=== PATIENT | female | born 1970 | race Caucasian/White ===

== ENCOUNTER 2016-10-14 12:31 | Emergency (ER) | payer MEDICARE ==
[2016-10-14] MEDS ORDERED: Dicyclomine HCl 20 mg/2 ml Ampule ONE (12:56)
[2016-10-14 13:21] LABS: #Basophils 0.1 thou/uL (0.0-0.2); #Eosinphils 0.1 thou/uL (0.0-0.7); #Lymphocytes 1.5 thou/uL (1.20-3.40); #Monocytes 0.4 thou/uL (0.11-0.59); #Neutrophils 2.5 thou/uL (1.40-6.50); %Basophils 1.3 % (0.0-1.0); %Eosinophils 2.6 % (0.0-10.0); %Monocytes 9.7 % (0.0-10.0); Mean Platelet Volume 6.5 fL (7.4-10.4); Red Blood Cell (RBC) Count 4.53 mill/uL (4.20-5.40); White Blood Cell (WBC) Count 4.5 thou/uL (4.8-10.8)
[2016-10-14 13:29] LABS: Blood, Urine Negative (Negative); Glucose, Urine (Dipstick) Negative (Negative); Ketone, Urine Negative (Negative); Nitrite Negative (Negative); Protein, Urine (Dipstick) 30 mg/dL (Neg-Trace)
[2016-10-14 13:37] LABS: ALT (SGPT) 12 U/L (0-55); AST (SGOT) 17 U/L (5-34); Alkaline Phosphatase 63 U/L (40-150); Anion Gap 13 mmol/L (10-20); BUN (Urea Nitrogen) 7 mg/dL (7.0-18.7); Bilirubin Negative (Negative); Bilirubin, Total 0.4 mg/dL (0.2-1.2); Calc. Creatinine Clearance 0 mL/min (70-130); Calcium 9.4 mg/dL (7.8-10.44); Carbon Dioxide 27 mmol/L (22-29); Chloride 107 mmol/L (98-107); Estimated GFR-MDRD 77; Globulin 2.8 g/dL (2.4-3.5); Lipase 26 U/L (8-78); Protein, Total 6.9 g/dL (6.0-8.3); RBC/HPF 0-3 HPF (0-3); WBC/HPF 0-3 HPF (0-3)
[2016-10-14 13:38] LABS: Bacteria/HPF 2+ HPF (None Seen)
[2016-10-14 13:40] LABS: Methadone Not Detected (NotDetected); Methamphetamine Not Detected (NotDetected)
[2016-10-14] MEDS ORDERED: Fentanyl 100 MCG/2 ML VIAL ONE (13:55)
--- NOTE | 2016-10-14 14:16 | ERRECORD ---
[facility] EMERGENCY RECORD HPI ABDOMINAL PAIN (13:12 [facility]AM) CHIEF COMPLAINTS: Patient presents for evaluation of abdominal pain. HISTORIAN: History provided by patient, Pt started with periumbilical abd pain 20 min ago after finishing pork chop, veggies and "a lot more than I usually eat." She has had similar pain off and on for "at least 8-9 years." She reports "at least 8 ct scans" and "more EGD's, ERCP's and colonoscopies than you can count." She has had "adhesions before" as well as GB, HYST and appy. She did have recurrent pancreatitis prior to removing her GB. She has been told that she has irritable bowel and has seen multiple gastroenterologists. LOCATION FEMALE: Symptoms are localized, most severe periumbilical, most severe in the radiates to the left flank. QUALITY: Pain is dull in nature, described as cramping, Described as similar to previous episodes. SEVERITY: Current severity of pain rated as 10/10. TIME COURSE: Sudden onset of symptoms, 20 min ago, Symptoms are intermittent, There has been no change in the patient's symptoms over time. ASSOCIATED WITH FEMALE: No associated recent antibiotic use, No associated bright red blood per rectum, No associated chills, No associated constipation, Associated with diarrhea, Number of times: 20 times 2 days ago but none since, No associated fever, Associated with flank pain, on the left, No associated groin pain, No associated hematemesis, No associated hematuria, No associated loss of appetite, No associated melena, No associated nausea, No associated night sweats, No associated trauma, No associated inability to tolerate oral intake, No associated urinary tract infection signs or symptoms, No associated vomiting. MODIFYING FACTORS FEMALE: Patient has had a hysterectomy. RELIEVED BY: Patient's condition not relieved by belching, Patient's condition not relieved by bowel movement, Patient's condition not relieved by changes in diet, Patient's condition not relieved by food, Patient's condition not relieved by flatulence, Patient's condition relieved by prescription medications, took her usual percocet this morning. She takes oxycontin er and percocet chronically., Patient's condition relieved by remaining still. EXACERBATED BY: Patient's condition exacerbated by food. RISK FACTORS FEMALE: No ectopic risk factors present, No abdominal aortic aneurysm risk factors, No coronary artery disease risk factors. ROS (13:22 [facility]) CONSTITUTIONAL: Negative constitutional review of systems, Historian denies chills, denies fatigue, denies fever. EYES: Negative eye review of systems. ENT: Negative ears, nose, throat review of systems. CARDIOVASCULAR: Negative cardiovascular review of systems, Historian denies chest pain, denies diaphoresis, denies exercise &a-1R&a+25V*p+0X*[id number]*c202B*c15G*c2P*p-0X&a-25V&a+1R Name: Patricia Davis : 1970 F45 MedRec: [id number] AcctNum: [id number] Prepared: Rupa Oct 14, 2016 19:55 by Interface Page 1 of 5 pMD [facility] EMERGENCY RECORD intolerance, denies palpitations. RESPIRATORY: Negative respiratory review of systems, Historian denies cough, denies shortness of breath, denies sputum, denies wheezing. GI: Historian reports abdominal pain, denies anorexia, denies appetite changes, reports diarrhea, denies nausea, denies vomiting. GENITOURINARY FEMALE: Historian denies dysuria, denies frequency, denies hesitancy, denies vaginal bleeding, denies vaginal discharge, denies vaginal itching. MUSCULOSKELETAL: Negative musculoskeletal review of systems, Historian denies arthralgias, denies injury, denies myalgias. SKIN: Negative skin review of systems, Historian denies rash, denies skin lesions. NEUROLOGIC: Negative neurologic review of systems, Historian denies confusion, denies headache. ENDOCRINE: Negative endocrine review of systems. HEMO/LYMPHATIC: Normal hematologic/lymphatic system review. ALLERGIC/IMMUNOLOGIC: Normal allergy/immunologic system review. PSYCHIATRIC: Negative psychiatric review of systems. PAST MEDICAL HISTORY (12:46 [facility]) MEDICAL HISTORY: Notes: CHRONIC BACK PAIN.,scoliosis, migraines. FEMALE SURGICAL HISTORY: LOWER BACK SURG X 7, Surgical history of appendectomy, Surgical history of cholecystectomy, Surgical history of hysterectomy, Surgical history of tonsillectomy. PSYCHIATRIC HISTORY: Psychiatric history includes, anxiety. SOCIAL HISTORY: Patient drinks socially, Patient denies drug use, Patient is a former tobacco user, Tobacco history notes: e- cig, Lives at home, with family, Patient drinks socially, every week, Patient denies drug use, Patient currently uses tobacco, [employer]. KNOWN ALLERGIES Ativan Stadol CURRENT MEDICATIONS Percocet: TABLET : Strength - 10 mg-325 mg : ORAL Patient Dose: 4 times a day. (12:47 [facility]) Flexeril: TABLET : Strength - 10 mg : ORAL Patient Dose: 3 times a day. (12:47 [facility]H) estradiol: TABLET : Strength - 0.5 mg : ORAL Patient Dose: UNK once a day. (12:47 [facility]) &a-1R&a+25V*p+0X*[id number]*c202B*c15G*c2P*p-0X&a-25V&a+1R Name: Patricia Davis : 1970 F45 MedRec: [id number] AcctNum: [id number] Prepared: Rupa Oct 14, 2016 19:55 by Interface Page 2 of 5 pMD [facility] EMERGENCY RECORD gabapentin: TABLET : Strength - 600 mg : ORAL Patient Dose: 3 times a day. (12:47 [facility]) oxyCODONE: CAPSULE : Strength - 5 mg : ORAL Patient Dose: Unknown. (12:48 [facility]) VITAL SIGNS VITAL SIGNS: BP: 125/96, Pulse: 86, Resp: 18, Temp: 98.1 (Oral), Pain: 10, O2 sat: 98, Time: 10/14/2016 12:40. (12:40 [facility]) BP: 112/87, Pulse: 89, Resp: 18, O2 sat: 100, Time: 10/14/2016 14:04. (14:04 [facility]) PHYSICAL EXAM (13:23 [facility]) CONSTITUTIONAL: Vital Signs Reviewed, Patient afebrile, Pulse normal, Blood pressure elevated, Respiratory rate normal, Normal pulse oximetry, Patient appears non toxic, Patient appears uncomfortable and in intermittent abd pain, Patient alert and oriented to person, place and time, Nursing notes reviewed. HEAD: Head exam included findings of head atraumatic, normocephalic. EYES: Eye exam included findings of eyelids normal to inspection, Pupils equally round and reactive to light, Extraocular muscles intact, Conjunctiva normal, Sclera normal, Eye exam included findings of anterior chamber clear. ENT: Ear exam normal, external ear normal, tympanic membranes normal, no foreign body, no drainage, no bleeding, hearing normal, Nose exam normal, no nasal deformity, no bleeding from nares, no bleeding from hypopharynx, no foreign body visualized, no septal hematoma, no septal necrosis, No turbinate mucosa discharge, Pharynx exam normal, not injected, no swelling, symmetrical, Uvula exam normal, midline, no edema, Tonsil exam normal, not enlarged, no exudates, Mouth exam normal, mucous membranes moist, no drooling, no lesions, no lacerations, no tongue elevation, teeth normal. NECK: Neck exam included findings of normal range of motion, Trachea midline, Thyroid normal, no meningeal signs, no cervical adenopathy, no tenderness, no contusions, no ecchymosis. RESPIRATORY CHEST: Respiratory exam included findings of no respiratory distress, Breath sounds clear, No wheezing, No rales, No rhonchi, Breath sounds not diminished, Chest exam included findings of chest movement symmetrical. CARDIOVASCULAR: Cardiovascular exam included findings of heart rate regular rate and rhythm, Heart sounds normal, normal S1, normal S2, no murmurs, no rub, no gallop. ABDOMEN FEMALE: Abdominal exam included findings of abdomen nontender, Bowel sounds normal, Liver normal, Spleen normal, no distension, no pulsatile masses, no peritoneal signs, no ventral hernia. BACK: Back exam included findings of, Range of motion, no tenderness, no costovertebral angle tenderness, &a-1R&a+25V*p+0X*f4479H*c202B*c15G*c2P*p-0X&a-25V&a+1R Name: Patricia Davis : 1970 F45 MedRec: [id number] AcctNum: [id number] Prepared: son Oct 14, 2016 19:55 by Interface Page 3 of 5 pMD [facility] EMERGENCY RECORD scoliosis and well healed scars from scoliosis. no cvat. UPPER EXTREMITY: Upper extremity exam normal, Upper extremity exam included findings of inspection normal, no abrasions, no contusions, no deformity, no lacerations, Range of motion normal, Motor strength normal, Sensation intact, Brachial pulse normal, Radial pulse normal. LOWER EXTREMITY: Lower extremity exam normal, Lower extremity exam included findings of inspection normal, no abrasions, no contusions, no deformity, no lacerations, Range of motion normal, Motor strength normal, Sensation intact, Pedal pulse normal, Kristian's negative, no edema, no calf tenderness. NEURO: Neuro exam findings include patient oriented to person, place and time, Speech normal, Gait normal, [place] coma scale 15, Memory normal, Cranial nerves intact, Deep tendon reflexes normal, no focal motor deficits, no focal sensory deficits. SKIN: Skin exam included findings of skin warm, dry, and normal in color, no rash. LYMPHATIC: Lymphatic exam normal, Lymphatic exam included findings of cervical nodes normal. PSYCHIATRIC: Psychiatric exam included findings of patient oriented to person place and time, Normal affect, Judgment normal, Insight normal, Remote memory normal, Recent memory normal, Concentration normal, No suicidal ideations, No homicidal ideations. MEDICATION ADMINISTRATION SUMMARY Drug Name: *fentaNYL (PF) injection, Dose Ordered: 50 mcg, Route: Intramuscular, Status: Given, Time: 13:57 10/14/2016, Drug Name: Bentyl intramuscular, Dose Ordered: 20 mg, Route: Intramuscular, Status: Given, Time: 12:59 10/14/2016, *Additional information available in notes, Detailed record available in Medication Service section. DOCTOR NOTES (13:55 [facility]) TEXT: Pt's labs and physical exam are reassuring and I see no suggestion of surgical dz or kidney stone or other significant intraabdominal process at this point. I think this is an exacerbation of her chronic IBS and she tells me that she has seen 8-9 gastroenterologists in the past. Further workup does not appear indicated at this time. see dci. PROBLEM LIST No recorded problems DIAGNOSIS (13:57 [facility]) FINAL: PRIMARY: IRRITABLE BOWEL SYND W/O DIARRHEA. PRESCRIPTION No recorded prescriptions &a-1R&a+25V*p+0X*b2190F*c202B*c15G*c2P*p-0X&a-25V&a+1R Name: Patricia Davis : 1970 F45 MedRec: [id number] AcctNum: [id number] Prepared: Rupa Oct 14, 2016 19:55 by Interface Page 4 of 5 pMD [facility] EMERGENCY RECORD DISPOSITION PATIENT: Disposition Type: Discharge, Disposition: *Discharge Home. (13:57 [facility]) Patient left the department. (14:06 [facility]) [place]: [facility]=MADHAV Mixon, January [facility]=MD Audrey, Song &a-1R&a+25V*p+0X*[id number]*c202B*c15G*c2P*p-0X&a-25V&a+1R Name: Patricia Davis : 1970 F45 MedRec: [id number] AcctNum: [id number] Prepared: Rupa Oct 14, 2016 19:55 by Interface Page 5 of 5 pMD MTDD
--- NOTE | 2016-10-14 14:20 | PICIS ---
[facility] EMERGENCY RECORD TRIAGE (ThuOct 14, 2016 12:43 ASAH) TRIAGE NOTES: pt c/o abdominal pain for 7 years with worsening over the past 2 weeks. denies any N/V/D. (ThuOct 14, 2016 12:43 ASAH) PATIENT: NAME: Patricia Davis, AGE: 45, GENDER: female, : Thu1970, TIME OF GREET: ThuOct 14, 2016 12:32, PREFERRED LANGUAGE: Vietnamese, ETHNICITY: Not or , ECODE BILLING MAP: [facility], SSN: [id number], Zip Code: [address], KG WEIGHT: 63.50, PHONE: , , , PERSON ID: [id number], PAYMENT: [employer], PCP: Deandre. (ThuOct 14, 2016 12:43 ASAH) COMPLAINT: Abdominal Pain. (ThuOct 14, 2016 12:43 ASAH) ADMISSION: URGENCY: 3 Urgent, ADMISSION SOURCE: Home, TRANSPORT: CAR, BED: ER -03. (ThuOct 14, 2016 12:43 ASAH) PAIN: Patient complains of pain described as, cramping, Location abdomin, Pain is intermittent, No aggravating factors, No relieving factors. (12:46 ASAH) IMMUNIZATIONS: Flu vaccine not up to date, Tetanus not up to date, Pneumococcal vaccine not up to date. (12:46 ASAH) SIRS SCORING: Heart Rate 55-109 (0), Temp range 96.8-101.1 (0), respiratory rate 12-24 (0), Mental status altered: yes (1), Infection or Suspected Infection: No. (12:46 ASAH) TRIAGE SCREENING: Patient denies suicidal ideation, Patient denies presence of domestic violence. (12:46 ASAH) LMP: LMP: Hysterectomy, Patient is not lactating. (12:46 ASAH) PROVIDERS: TRIAGE NURSE: Dolores Mixon RN. (ThuOct 14, 2016 12:43 ASAH) VITAL SIGNS: BP 125/96, Pulse 86, Resp 18, Temp 98.1, (Oral), Pain 10, O2 Sat 98, Time 10/14/2016 12:40. (12:40 ASAH) PREVIOUS VISIT ALLERGIES: Ativan, Stadol. (ThuOct 14, 2016 12:43 ASAH) Ativan, Stadol. (12:46 ASAH) KNOWN ALLERGIES Ativan Stadol CURRENT MEDICATIONS Percocet: TABLET : Strength - 10 mg-325 mg : ORAL Patient Dose: 4 times a day. (12:47 ASAH) Flexeril: TABLET : Strength - 10 mg : ORAL Patient Dose: 3 times a day. (12:47 ASAH) estradiol: TABLET : Strength - 0.5 mg : ORAL Patient Dose: UNK once a day. (12:47 ASAH) gabapentin: &a-1R&a+25V*p+0X*c0128I*c202B*c15G*c2P*p-0X&a-25V&a+1R Name: Patricia Davis : 1970 F45 MedRec: [id number] AcctNum: [id number] Prepared: ThuOct 14, 2016 19:55 by Interface Page 1 of 10 pMD [facility] EMERGENCY RECORD TABLET : Strength - 600 mg : ORAL Patient Dose: 3 times a day. (12:47 ASAH) oxyCODONE: CAPSULE : Strength - 5 mg : ORAL Patient Dose: Unknown. (12:48 ASAH) VITAL SIGNS VITAL SIGNS: BP: 125/96, Pulse: 86, Resp: 18, Temp: 98.1 (Oral), Pain: 10, O2 sat: 98, Time: 10/14/2016 12:40. (12:40 ASAH) BP: 112/87, Pulse: 89, Resp: 18, O2 sat: 100, Time: 10/14/2016 14:04. (14:04 ASAH) NURSING ASSESSMENT: ABDOMEN (13:00 ASAH) CONSTITUTIONAL: Complex assessment performed, Patient arrives, via hospital wheelchair, Gait steady, History obtained from patient, Patient cooperative, Patient alert, Oriented to person, place and time, Skin warm, Patient complains of abdominal pain. PAIN: cramping pain, to the left lower quadrant, intermittent, on a scale 0-10 patient rates pain as 8, Pain exacerbated by nothing. ABDOMEN: Abdomen assessment findings include abdomen symmetrical, Abdomen soft. SAFETY: Side rails up, Cart/Stretcher in lowest position, Family at bedside, Call light within reach, Hospital ID band on. NURSING PROCEDURE: DISCHARGE NOTE (14:04 [facility]) DISCHARGE: Patient discharged to home, ambulating without assistance, family driving, accompanied by other family member, Summary of Care printed/ provided, Discharge instructions given to patient, Simple or moderate discharge teaching performed, by madhav garcía. SAFETY: Side rails up, Cart/Stretcher in lowest position, Family at bedside, Call light within reach, Hospital ID band on. VITAL SIGNS: BP: 112, / 87, Pulse: 89, Resp: 18, O2 sat: 100, Time: 1402. NURSING PROCEDURE: URINE COLLECTION (12:58 [facility]) URINE COLLECTION FEMALE: Urine collected by mid-stream clean catch, Output amount (mL) 30, urine yellow in color, and clear, Specimen labeled in the presence of the patient and sent to lab. ORDER DETAILS Order Name: CBC with Differential, Status: Active, Time: 12:54 10/14/2016, User: MAURY, - Ordered for: MD Ventura Darren, - Entered by: MD Ventura Darren - Tue Oct 14, 2016 12:54, - Quantity: 1, Order Name: Comprehensive Metabolic Panel, Status: Active, Time: 12:54 10/14/2016, User: MAURY, &a-1R&a+25V*p+0X*g7133X*c202B*c15G*c2P*p-0X&a-25V&a+1R Name: Patricia Davis : 1970 F45 MedRec: [id number] AcctNum: [id number] Prepared: Rupa Oct 14, 2016 19:55 by Interface Page 2 of 10 pMD [facility] EMERGENCY RECORD - Ordered for: MD Ventura Darren, - Entered by: MD Ventura Darren - Tue Oct 14, 2016 12:54, - Quantity: 1, Order Name: Drug Screen, Urine, Status: Active, Time: 12:54 10/14/2016, User: MAURY, - Ordered for: MD Ventura Darren, - Entered by: MD Ventura Darren - Tue Oct 14, 2016 12:54, - Quantity: 1, Order Name: Lipase, Status: Active, Time: 12:54 10/14/2016, User: MAURY, - Ordered for: MD Ventura Darren, - Entered by: MD Ventura Darren - son Oct 14, 2016 12:54, - Quantity: 1, Order Name: Urinalysis with Microscopic, Status: Active, Time: 12:54 10/14/2016, User: MAURY, - Ordered for: MD Ventura Darren, - Entered by: MD Ventura Darren - son Oct 14, 2016 12:54, - Quantity: 1. MEDICATION ADMINISTRATION SUMMARY Drug Name: *fentaNYL (PF) injection, Dose Ordered: 50 mcg, Route: Intramuscular, Status: Given, Time: 13:57 10/14/2016, Drug Name: Bentyl intramuscular, Dose Ordered: 20 mg, Route: Intramuscular, Status: Given, Time: 12:59 10/14/2016, *Additional information available in notes, Detailed record available in Medication Service section. MEDICATION SERVICE Bentyl intramuscular: Order: Bentyl intramuscular (dicyclomine HCl) - Dose: 20 mg : Intramuscular Schedule: Now Ordered by: Song Ventura MD Entered by: Song Ventura MD son Oct 14, 2016 12:53 , Acknowledged by: Dolores Mixon RN son Oct 14, 2016 12:55 Documented as given by: Dolores Mixon RN ThuOct 14, 2016 12:59 Patient, Medication, Dose, Route and Time verified prior to administration. IM medication, Amount given: 20mg, Amount wasted: 0, Medication administered to left buttock, Correct patient, time, route, dose and medication confirmed prior to administration, Patient advised of actions and side-effects prior to administration, Allergies confirmed and medications reviewed prior to administration, Patient in position of comfort, Side rails up, Cart in lowest position. : Follow Up : No signs or symptoms of allergic reaction noted, Site inspection shows, No swelling at administration site, No drainage at administration site, No bleeding at site, No bruising noted at site, Advised not to ambulate without assistance, Patient in position of comfort, Side rails up, Cart in lowest position, Family at bedside. (14:02 [facility]) &a-1R&a+25V*p+0X*u8389R*c202B*c15G*c2P*p-0X&a-25V&a+1R Name: Patricia Davis : 1970 F45 MedRec: [id number] AcctNum: [id number] Prepared: ThuOct 14, 2016 19:55 by Interface Page 3 of 10 pMD [facility] EMERGENCY RECORD fentaNYL (PF) injection: Order: fentaNYL (PF) injection (fentanyl citrate/preservative free) - Dose: 50 mcg : Intramuscular Schedule: Now Notes: when family/transportation available. Ordered by: Song Ventura MD Entered by: Song Ventura MD ThuOct 14, 2016 13:52 , Acknowledged by: Dolores Mixon RN ThuOct 14, 2016 13:54 Documented as given by: Dolores Mixon RN ThuOct 14, 2016 13:57 Patient, Medication, Dose, Route and Time verified prior to administration. IM medication, Amount given: 50mcg, Amount wasted: 50 mcg, Medication administered to right buttock, Correct patient, time, route, dose and medication confirmed prior to administration, Patient advised of actions and side-effects prior to administration, Allergies confirmed and medications reviewed prior to administration, Patient in position of comfort, Side rails up, Cart in lowest position, Family at bedside. : Follow Up : No signs or symptoms of allergic reaction noted, Site inspection shows, No swelling at administration site, No drainage at administration site, No bleeding at site, No bruising noted at site, Advised not to ambulate without assistance, Patient in position of comfort, Side rails up, Cart in lowest position, Family at bedside. (14:03 [facility]) HPI ABDOMINAL PAIN (13:12 [facility]) CHIEF COMPLAINTS: Patient presents for evaluation of abdominal pain. HISTORIAN: History provided by patient, Pt started with periumbilical abd pain 20 min ago after finishing pork chop, veggies and "a lot more than I usually eat." She has had similar pain off and on for "at least 8-9 years." She reports "at least 8 ct scans" and "more EGD's, ERCP's and colonoscopies than you can count." She has had "adhesions before" as well as GB, HYST and appy. She did have recurrent pancreatitis prior to removing her GB. She has been told that she has irritable bowel and has seen multiple gastroenterologists. LOCATION FEMALE: Symptoms are localized, most severe periumbilical, most severe in the radiates to the left flank. QUALITY: Pain is dull in nature, described as cramping, Described as similar to previous episodes. SEVERITY: Current severity of pain rated as 10/10. TIME COURSE: Sudden onset of symptoms, 20 min ago, Symptoms are intermittent, There has been no change in the patient's symptoms over time. ASSOCIATED WITH FEMALE: No associated recent antibiotic use, No associated bright red blood per rectum, No associated chills, No associated constipation, Associated with diarrhea, Number of times: 20 times 2 days ago but none since, No associated fever, Associated with flank pain, on the left, No associated groin pain, No &a-1R&a+25V*p+0X*b5433U*c202B*c15G*c2P*p-0X&a-25V&a+1R Name: Patricia Davis : 1970 F45 MedRec: [id number] AcctNum: [id number] Prepared: Rupa Oct 14, 2016 19:55 by Interface Page 4 of 10 pMD [facility] EMERGENCY RECORD associated hematemesis, No associated hematuria, No associated loss of appetite, No associated melena, No associated nausea, No associated night sweats, No associated trauma, No associated inability to tolerate oral intake, No associated urinary tract infection signs or symptoms, No associated vomiting. MODIFYING FACTORS FEMALE: Patient has had a hysterectomy. RELIEVED BY: Patient's condition not relieved by belching, Patient's condition not relieved by bowel movement, Patient's condition not relieved by changes in diet, Patient's condition not relieved by food, Patient's condition not relieved by flatulence, Patient's condition relieved by prescription medications, took her usual percocet this morning. She takes oxycontin er and percocet chronically., Patient's condition relieved by remaining still. EXACERBATED BY: Patient's condition exacerbated by food. RISK FACTORS FEMALE: No ectopic risk factors present, No abdominal aortic aneurysm risk factors, No coronary artery disease risk factors. ROS (13:22 [facility]) CONSTITUTIONAL: Negative constitutional review of systems, Historian denies chills, denies fatigue, denies fever. EYES: Negative eye review of systems. ENT: Negative ears, nose, throat review of systems. CARDIOVASCULAR: Negative cardiovascular review of systems, Historian denies chest pain, denies diaphoresis, denies exercise intolerance, denies palpitations. RESPIRATORY: Negative respiratory review of systems, Historian denies cough, denies shortness of breath, denies sputum, denies wheezing. GI: Historian reports abdominal pain, denies anorexia, denies appetite changes, reports diarrhea, denies nausea, denies vomiting. GENITOURINARY FEMALE: Historian denies dysuria, denies frequency, denies hesitancy, denies vaginal bleeding, denies vaginal discharge, denies vaginal itching. MUSCULOSKELETAL: Negative musculoskeletal review of systems, Historian denies arthralgias, denies injury, denies myalgias. SKIN: Negative skin review of systems, Historian denies rash, denies skin lesions. NEUROLOGIC: Negative neurologic review of systems, Historian denies confusion, denies headache. ENDOCRINE: Negative endocrine review of systems. HEMO/LYMPHATIC: Normal hematologic/lymphatic system review. ALLERGIC/IMMUNOLOGIC: Normal allergy/immunologic system review. PSYCHIATRIC: Negative psychiatric review of systems. PAST MEDICAL HISTORY (12:46 [facility]) MEDICAL HISTORY: Notes: CHRONIC BACK PAIN.,scoliosis, migraines. FEMALE SURGICAL HISTORY: LOWER BACK SURG X 7, Surgical &a-1R&a+25V*p+0X*k7721X*c202B*c15G*c2P*p-0X&a-25V&a+1R Name: Patricia Davis : 1970 F45 MedRec: [id number] AcctNum: [id number] Prepared: Rupa Oct 14, 2016 19:55 by Interface Page 5 of 10 pMD [facility] EMERGENCY RECORD history of appendectomy, Surgical history of cholecystectomy, Surgical history of hysterectomy, Surgical history of tonsillectomy. PSYCHIATRIC HISTORY: Psychiatric history includes, anxiety. SOCIAL HISTORY: Patient drinks socially, Patient denies drug use, Patient is a former tobacco user, Tobacco history notes: e- cig, Lives at home, with family, Patient drinks socially, every week, Patient denies drug use, Patient currently uses tobacco, ECIG. PHYSICAL EXAM (13:23 [facility]) CONSTITUTIONAL: Vital Signs Reviewed, Patient afebrile, Pulse normal, Blood pressure elevated, Respiratory rate normal, Normal pulse oximetry, Patient appears non toxic, Patient appears uncomfortable and in intermittent abd pain, Patient alert and oriented to person, place and time, Nursing notes reviewed. HEAD: Head exam included findings of head atraumatic, normocephalic. EYES: Eye exam included findings of eyelids normal to inspection, Pupils equally round and reactive to light, Extraocular muscles intact, Conjunctiva normal, Sclera normal, Eye exam included findings of anterior chamber clear. ENT: Ear exam normal, external ear normal, tympanic membranes normal, no foreign body, no drainage, no bleeding, hearing normal, Nose exam normal, no nasal deformity, no bleeding from nares, no bleeding from hypopharynx, no foreign body visualized, no septal hematoma, no septal necrosis, No turbinate mucosa discharge, Pharynx exam normal, not injected, no swelling, symmetrical, Uvula exam normal, midline, no edema, Tonsil exam normal, not enlarged, no exudates, Mouth exam normal, mucous membranes moist, no drooling, no lesions, no lacerations, no tongue elevation, teeth normal. NECK: Neck exam included findings of normal range of motion, Trachea midline, Thyroid normal, no meningeal signs, no cervical adenopathy, no tenderness, no contusions, no ecchymosis. RESPIRATORY CHEST: Respiratory exam included findings of no respiratory distress, Breath sounds clear, No wheezing, No rales, No rhonchi, Breath sounds not diminished, Chest exam included findings of chest movement symmetrical. CARDIOVASCULAR: Cardiovascular exam included findings of heart rate regular rate and rhythm, Heart sounds normal, normal S1, normal S2, no murmurs, no rub, no gallop. ABDOMEN FEMALE: Abdominal exam included findings of abdomen nontender, Bowel sounds normal, Liver normal, Spleen normal, no distension, no pulsatile masses, no peritoneal signs, no ventral hernia. BACK: Back exam included findings of, Range of motion, no tenderness, no costovertebral angle tenderness, scoliosis and well healed scars from scoliosis. no cvat. UPPER EXTREMITY: Upper extremity exam normal, Upper extremity &a-1R&a+25V*p+0X*t5072C*c202B*c15G*c2P*p-0X&a-25V&a+1R Name: Patricia Davis : 1970 F45 MedRec: [id number] AcctNum: [id number] Prepared: ThuOct 14, 2016 19:55 by Interface Page 6 of 10 pMD [facility] EMERGENCY RECORD exam included findings of inspection normal, no abrasions, no contusions, no deformity, no lacerations, Range of motion normal, Motor strength normal, Sensation intact, Brachial pulse normal, Radial pulse normal. LOWER EXTREMITY: Lower extremity exam normal, Lower extremity exam included findings of inspection normal, no abrasions, no contusions, no deformity, no lacerations, Range of motion normal, Motor strength normal, Sensation intact, Pedal pulse normal, Kristian's negative, no edema, no calf tenderness. NEURO: Neuro exam findings include patient oriented to person, place and time, Speech normal, Gait normal, Elsa coma scale 15, Memory normal, Cranial nerves intact, Deep tendon reflexes normal, no focal motor deficits, no focal sensory deficits. SKIN: Skin exam included findings of skin warm, dry, and normal in color, no rash. LYMPHATIC: Lymphatic exam normal, Lymphatic exam included findings of cervical nodes normal. PSYCHIATRIC: Psychiatric exam included findings of patient oriented to person place and time, Normal affect, Judgment normal, Insight normal, Remote memory normal, Recent memory normal, Concentration normal, No suicidal ideations, No homicidal ideations. EVENTS TRANSFER: Triage to Emergency Emergency Room -03. (ThuOct 14, 2016 12:43 ASA) Removed from Emergency Emergency Room -03. (14:06 [facility]) O2SAT INTERPRETATION (13:12 [facility]) O2SAT: Single pulse oximetry, Oxygen saturation 98%, on room air, Oxygen saturation interpretation: Normal, No intervention required. DOCTOR NOTES (13:55 [facility]) TEXT: Pt's labs and physical exam are reassuring and I see no suggestion of surgical dz or kidney stone or other significant intraabdominal process at this point. I think this is an exacerbation of her chronic IBS and she tells me that she has seen 8-9 gastroenterologists in the past. Further workup does not appear indicated at this time. see dci. PROBLEM LIST No recorded problems DIAGNOSIS (13:57 [facility]) FINAL: PRIMARY: IRRITABLE BOWEL SYND W/O DIARRHEA. DISPOSITION PATIENT: Disposition Type: Discharge, Disposition: *Discharge Home. (13:57 [facility]AM) Patient left the department. (14:06 [facility]) &a-1R&a+25V*p+0X*b3252I*c202B*c15G*c2P*p-0X&a-25V&a+1R Name: Patricia Davis : 1970 F45 MedRec: [id number] AcctNum: [id number] Prepared: ThuOct 14, 2016 19:55 by Interface Page 7 of 10 pMD [facility] EMERGENCY RECORD INSTRUCTION (13:58 [facility]) DISCHARGE: IRRITABLE BOWEL SYNDROME. SPECIAL: use Metamucil 1 packet twice a day Return for fever, increased abdominal pain or any other concerns. Continue to follow up with your pcp, director of orthopedics and pain mgmt providers as planned. PRESCRIPTION No recorded prescriptions IMAGING (14:04 [facility]) *DISCHARGE INSTRUCTIONS RECEIPT: Image captured from scanner. *SUPPLY CHARGE SHEET: Image captured from scanner. ADMIN DIGITAL SIGNATURE: MADHAV Mixon, January. (14:06 [facility]) MD Ventura Darren. (19:49 [facility]) RESULTS (13:48 [facility]) LABORATORY: Drug Screen, Urine Collection DT: ThuOct 14, 2016 13:07, THC/Cannabinoid Screen Not Detected , Range (NotDetected), Phencyclidine (PCP) Not Detected , Range (NotDetected), Cocaine Metabolite Screen Not Detected , Range (NotDetected), Methamphetamine Not Detected , Range (NotDetected), *Opiate Screen Detected - H , Range (NotDetected), Amphetamine Not Detected , Range (NotDetected), Benzodiazepine Screen Not Detected , Range (NotDetected), Tricyclic Screen Not Detected , Range (NotDetected), Methadone Not Detected , Range (NotDetected), Barbiturates Screen Not Detected , Range (NotDetected), *Oxycodone Screen Detected - H , Range (NotDetected), Propoxyphene Screen Not Detected , Range (NotDetected), Drug Screen Cutoff , Range (), The MedTox Profile-V Panel for Qualitative Drugs of Abuse assays are for, presumptive screening testing only. The drug class and detection limits, are as follows: Drug Class Detection Limit Amphetamine , 500 ng/mL* Barbiturates 200 ng/mL , Benzodiazepines 150 ng/mL* Cocaine 150 ng/mL*, Methamphetamine 500 ng/mL* Methadone 200, ng/mL* Opiates 100 ng/mL* Oxycodone , 100 ng/mL PCP 25 ng/mL Propoxyphene , 300 ng/mL Tricyclic Antidepressants 300 ng/mL &a-1R&a+25V*p+0X*i1549N*c202B*c15G*c2P*p-0X&a-25V&a+1R Name: Patricia Davis : 1970 F45 MedRec: [id number] AcctNum: [id number] Prepared: ThuOct 14, 2016 19:55 by Interface Page [address] [facility] EMERGENCY RECORD Cannabinoids (THC) , 50 ng/mL Tests which yield a presumptive positive result must be , tested using a more specific alternate chemical method in order to obtain, a confirmed analytical result. Additional confirmation and identification, may be ordered on a routine basis, if desired. Presumptive positive urines, are held for two weeks. . Urinalysis with Microscopic Collection DT: ThuOct 14, 2016 13:07, Color Yellow , Range (Yellow), Clarity Cloudy , Range (Clear), Specific [place], Urine 1.025 , Range (1.005-1.030), pH, Urine 6.0 , Range (5.0-9.0), Leukocyte Negative , Range (Negative), Nitrite Negative , Range (Negative), *Protein, Urine (Dipstick) 30 - H mg/dL, Range (Neg-Trace), Glucose, Urine (Dipstick) Negative mg/dL, Range (Negative), Ketone, Urine Negative mg/dL, Range (Negative), Urobilinogen 1.0 mg/dL, Range (0.2-1.0), Bilirubin Negative , Range (Negative), , Blood, Urine Negative , Range (Negative), RBC/HPF 0-3 HPF, Range (0-3), WBC/HPF 0-3 HPF, Range (0-3), *Squamous Epithelial 7-10 - H HPF, Range (0-3), *Bacteria/HPF 2+ - H HPF, Range (None Seen). Lipase Collection DT: ThuOct 14, 2016 13:07, Lipase 26 U/L, Range (8-78). Comprehensive Metabolic Panel Collection DT: ThuOct 14, 2016 13:07, Sodium 143 mmol/L, Range (136-145), Potassium 4.1 mmol/L, Range (3.5-5.1), Chloride 107 mmol/L, Range (98-107), Carbon Dioxide 27 mmol/L, Range (22-29), Anion Gap 13 mmol/L, Range (10-20), BUN (Urea Nitrogen) 7 mg/dL, Range (7.0-18.7), Creatinine 0.80 mg/dL, Range (0.6-1.1), Estimated GFR-MDRD 77 , Reference Range for Estimated GFR: Greater than 90, mL/min/1.73 m2 NOTE: The MDRD equation has not been validated for use, with the elderly (over 70 years of age), women, patients with, serious comorbid condition or persons with extremes of body size, muscle, mass, or nutritional status. , Glucose 93 mg/dL, Range (70-105), Calcium 9.4 mg/dL, Range (7.8-10.44), Bilirubin, Total 0.4 mg/dL, Range (0.2-1.2), Protein, Total 6.9 g/dL, Range (6.0-8.3), NOTE: Plasma values are generally 0.3 to 0.5 g/dL higher than serum values, due to the presence of fibrinogen. , &a-1R&a+25V*p+0X*p2057L*c202B*c15G*c2P*p-0X&a-25V&a+1R Name: Negrorayna Patricia Samina : 1970 F45 MedRec: [id number] AcctNum: [id number] Prepared: ThuOct 14, 2016 19:55 by Interface Page 9 of 10 pMD [facility] EMERGENCY RECORD Albumin 4.1 g/dL, Range (3.5-5.0), Globulin 2.8 g/dL, Range (2.4-3.5), Alb/Glob Ratio 1.5 g/dL, Range (1.2-2.2), Alkaline Phosphatase 63 U/L, Range (40-150), AST (SGOT) 17 U/L, Range (5-34), ALT (SGPT) 12 U/L, Range (0-55). CBC with Differential Collection DT: ThuOct 14, 2016 13:07, *White Blood Cell (WBC) Count 4.5 - L thou/uL, Range (4.8-10.8), Red Blood Cell (RBC) Count 4.53 mill/uL, Range (4.20-5.40), Hemoglobin 13.4 g/dL, Range (12.0-16.0), Hematocrit 42.0 %, Range (36.0-47.0), Mean Corpuscular Volume 92.7 fl, Range (81.0-99.0), Mean Corpuscular Hemoglobin 29.6 pg, Range (27.0-31.0), *Mean Corpuscular HGB CONC 31.9 - L g/dL, Range (32.0-36.0), RBC Distribution Width 11.7 %, Range (11.5-14.5), Platelet Count 299 thou/uL, Range (130-400), *Mean Platelet Volume 6.5 - L fL, Range (7.4-10.4), %Neutrophils 54.4 %, Range (42.0-75.0), %Lymphocytes 32.1 %, Range (21.0-51.0), %Monocytes 9.7 %, Range (0.0-10.0), %Eosinophils 2.6 %, Range (0.0-10.0), *%Basophils 1.3 - H %, Range (0.0-1.0), #Neutrophils 2.5 thou/uL, Range (1.40-6.50), #Lymphocytes 1.5 thou/uL, Range (1.20-3.40), #Monocytes 0.4 thou/uL, Range (0.11-0.59), #Eosinphils 0.1 thou/uL, Range (0.0-0.7), #Basophils 0.1 thou/uL, Range (0.0-0.2). Carpio: DEEPA=MADHAV Mixon, January DHAM=MD Audrey, Song LGIB=MADHAV Alva, Marcella &a-1R&a+25V*p+0X*m3893J*c202B*c15G*c2P*p-0X&a-25V&a+1R Name: Jenny Davisscshannon Haas : 1970 F45 MedRec: [id number] AcctNum: [id number] Prepared: Rupa Oct 14, 2016 19:55 by Interface Page 10 of 10 pMD MTDD
== END 2016-10-14 14:02 | disposition home or self-care (01) ==
LOC: BURERS 12:31
DX: K58.9 Irritable bowel syndrome, unspecified (principal); G43.909 Migraine, unspecified, not intractable, without status migrainosus; F17.210 Nicotine dependence, cigarettes, uncomplicated
CPT/HCPCS: 36415; 80053; 81001; 83690; 85025; 96372; G0478; J3010

== ENCOUNTER 2019-12-11 17:06 | Emergency (ER) | payer MEDICARE ==
[2019-12-11] MEDS ORDERED: Ketorolac Tromethamine 30 MG/ML VIAL ONE (17:27)
[2019-12-11] MEDS ORDERED: methylPREDNISolone Sod Succ/PF 125 MG/2 ML VIAL ONE (17:27)
[2019-12-11] MEDS ORDERED: Prochlorperazine 10 MG/2 ML VIAL ONE (17:27)
[2019-12-11] MEDS ORDERED: diphenhydrAMINE 50 MG/ML VIAL ONE (17:27)
== END 2019-12-11 18:27 | disposition home or self-care (01) ==
LOC: BURERS 17:06
DX: G43.909 Migraine, unspecified, not intractable, without status migrainosus (principal); F41.9 Anxiety disorder, unspecified; Z87.891 Personal history of nicotine dependence; Z79.899 Other long term (current) drug therapy
CPT/HCPCS: 96361; 96374; 96375; J0780; J1200; J1885; J2930

== ENCOUNTER 2020-09-01 08:15 | Emergency (ER) | payer MEDICARE ==
[2020-09-01] MEDS ORDERED: Magnesium 2 GM/50 ML BAG (IN WATER) ONE (08:45)
[2020-09-01] MEDS ORDERED: diphenhydrAMINE 50 MG/ML VIAL ONE (09:03)
[2020-09-01] MEDS ORDERED: Metoclopramide HCl 10 MG/2 ML VIAL ONE (09:03)
[2020-09-01] MEDS ORDERED: Ketorolac Tromethamine 30 MG/ML VIAL ONE (09:03)
== END 2020-09-01 10:26 | disposition home or self-care (01) ==
LOC: BURERS 08:15
DX: G43.909 Migraine, unspecified, not intractable, without status migrainosus (principal); K21.9 Gastro-esophageal reflux disease without esophagitis; F41.9 Anxiety disorder, unspecified; F17.290 Nicotine dependence, other tobacco product, uncomplicated; Z79.899 Other long term (current) drug therapy
CPT/HCPCS: 96365; 96375; J1200; J1885; J2765; J3475

== ENCOUNTER 2020-10-09 03:43 | Emergency (ER) | payer MEDICARE ==
[2020-10-09] MEDS ORDERED: diphenhydrAMINE 50 MG/ML VIAL ONE (03:56)
[2020-10-09] MEDS ORDERED: Ketorolac Tromethamine 30 MG/ML VIAL ONE (03:56)
[2020-10-09] MEDS ORDERED: Metoclopramide HCl 10 MG/2 ML VIAL ONE (03:56)
== END 2020-10-09 05:21 | disposition home or self-care (01) ==
LOC: BURERS 03:43
DX: R51.9 Headache, unspecified (principal); K21.9 Gastro-esophageal reflux disease without esophagitis; F17.290 Nicotine dependence, other tobacco product, uncomplicated; Z79.899 Other long term (current) drug therapy
CPT/HCPCS: 96365; 96375; J1200; J1885; J2765

== ENCOUNTER 2020-11-23 18:32 | Emergency (ER) | payer MEDICARE ==
[2020-11-23] MEDS ORDERED: Dexamethasone 10 MG/ML VIAL ONE (19:30)
[2020-11-23] MEDS ORDERED: diphenhydrAMINE 50 MG/ML VIAL ONE (19:30)
[2020-11-23] MEDS ORDERED: Ketorolac Tromethamine 30 MG/ML VIAL ONE (19:30)
[2020-11-23] MEDS ORDERED: Metoclopramide HCl 10 MG/2 ML VIAL ONE (19:30)
== END 2020-11-23 21:04 | disposition home or self-care (01) ==
LOC: BURERS 18:32
DX: G43.909 Migraine, unspecified, not intractable, without status migrainosus (principal); K21.9 Gastro-esophageal reflux disease without esophagitis; F17.290 Nicotine dependence, other tobacco product, uncomplicated; Z79.899 Other long term (current) drug therapy
CPT/HCPCS: 96374; 96375; J1100; J1200; J1885; J2765